=== PATIENT | male | born 1955 | race Caucasian/White ===

== ENCOUNTER 2019-01-01 11:01 | Emergency (ER) | payer SELFPAY ==
[2019-01-01 12:21] LABS: #Basophils 0.1 thou/uL (0.0-0.2); #Eosinphils 0.2 thou/uL (0.0-0.7); #Lymphocytes 3.9 thou/uL (1.20-3.40); #Monocytes 0.9 thou/uL (0.11-0.59); #Neutrophils 7.1 thou/uL (1.40-6.50); %Basophils 0.9 % (0.0-1.0); %Eosinophils 1.2 % (0.0-10.0); %Lymphocytes 32.4 % (21.0-51.0); %Monocytes 7.5 % (0.0-10.0); Hemoglobin 16.4 g/dL (14.0-18.0); Mean Corpuscular HGB CONC 32.3 g/dL (32.0-36.0); Mean Corpuscular Hemoglobin 29.1 pg (27.0-31.0); Mean Corpuscular Volume 90.1 fL (78.0-98.0); Mean Platelet Volume 7.7 fL (7.4-10.4); Platelet Count 271 thou/uL (130-400); RBC Distribution Width 12.8 % (11.5-14.5); Red Blood Cell (RBC) Count 5.62 mill/uL (4.70-6.10); White Blood Cell (WBC) Count 12.2 thou/uL (4.8-10.8)
[2019-01-01 12:46] LABS: ALT (SGPT) 58 U/L (8-55); AST (SGOT) 53 U/L (5-34); Albumin 4.1 g/dL (3.4-4.8); Alkaline Phosphatase 75 U/L (40-150); Anion Gap 13 mmol/L (10-20); BUN (Urea Nitrogen) 14 mg/dL (8.4-25.7); Bilirubin, Total 0.5 mg/dL (0.2-1.2); Calc. Creatinine Clearance 0 mL/min (70-130); Calcium 9.9 mg/dL (7.8-10.44); Carbon Dioxide 26 mmol/L (23-31); Chloride 102 mmol/L (98-107); Estimated GFR-MDRD Greater than 90; Globulin 4.5 g/dL (2.4-3.5); Glucose 123 mg/dL (80-115); Potassium 3.9 mmol/L (3.5-5.1); Protein, Total 8.6 g/dL (5.8-8.1); Sodium 137 mmol/L (136-145)
[2019-01-01] MEDS ORDERED: Ondansetron PF 4 MG/2 ML Vial ONE (13:28)
[2019-01-01] MEDS ORDERED: Morphine 4 MG/ML VIAL ONE (13:29)
[2019-01-01] MEDS ORDERED: ISOVUE-370 76%-LOCM 1 ML ONE (13:35)
--- NOTE | 2019-01-01 14:02 | CT ---
CT Chest W Con: 01/01/2019 1:01 PM CLINICAL INDICATION: Soft tissue mass of the chest. COMPARISON: None.. FINDINGS: Lung and Large Airways: There is mild right basilar atelectasis. Pleura: No effusion or mass. Vessels: There are mild vascular calcifications of the coronary artery and thoracic aorta. Heart: Normal appearing. No pericardial effusion.. Mediastinum and Elena: Normal. Chest Wall and Lower Neck: There is a 6.9 x 5.2 cm heterogeneously enhancing mass extending off the a nterior left chest wall on image 17 of series 5. There is an additional well-circumscribed hypodense mass involving the left posterior lateral back measuring 7 cm. Upper Abdomen: No acute abnormality. Bones: No acute osseous abnormality. There is scattered degenerative and osteoarthritic change presen t. IMPRESSION: 1. Enlarged chest wall soft tissue masses. Surgical consultation is recommended for removal or biopsy . 2. Mild region of subsegmental volume loss within the posterior right lower lobe.
--- NOTE | 2019-01-01 14:15 | CT ---
CT MAXILLOFACIAL WITH CONTRAST: 01/01/19 HISTORY: 63-year-old male with foul smelling draining wound in face. Known basal cell carcinoma. COMPARISON: None. FINDINGS: There is a region of soft tissue nodular thickening involving the skin of the right cheek anterior to the right maxillary sinus. The inferomedial aspect of the soft tissue density has a shallow superfic ial defect which may represent the wound mentioned in the history. This is contiguous with subcutaneo us soft tissue thickening material that extends inferior to the right naris, and abuts the anterior c ortical surface of the right maxilla. No definite osseous cortical destruction or invasion. Poor dent ition. No air fluid levels in the paranasal sinuses. There are small scattered mucous retention cysts in the paranasal sinuses, including sphenoid sinus and bilateral maxillary sinuses, and right fronta l sinus. Partial opacification of bilateral anterior ethmoid air cells. Bilateral tympanomastoid cavi ties are grossly clear. No evidence of mass or abscess in the deep spaces. IMPRESSION: Infiltrative mass consistent with the stated history of skin cancer in the right cheek, with associat ed ulceration, and extending deeper into the superficial soft tissues, abutting the periosteum of the right maxilla. POS: CET
== END 2019-01-01 17:03 | disposition home or self-care (01) ==
LOC: ERS 11:01
DX: L98.9 Disorder of the skin and subcutaneous tissue, unspecified (principal); R22.2 Localized swelling, mass and lump, trunk; F17.210 Nicotine dependence, cigarettes, uncomplicated
CPT/HCPCS: 36415; 70487; 71260; 80053; 83605; 85025; 96361; 96374; 96375; J2270; J2405; Q9966

== ENCOUNTER 2021-02-11 09:57 | Emergency (ER) | payer MEDICARE, SELFPAY ==
[2021-02-11] MEDS ORDERED: traMADol HCl 50 MG TAB ONE (12:25)
== END 2021-02-11 12:30 | disposition home or self-care (01) ==
LOC: ERS 09:57
DX: C44.519 Basal cell carcinoma of skin of other part of trunk (principal); C44.319 Basal cell carcinoma of skin of other parts of face; L72.3 Sebaceous cyst; F17.290 Nicotine dependence, other tobacco product, uncomplicated
CPT/HCPCS: 99282

== ENCOUNTER 2021-03-02 10:29 | Outpatient (CLI) | payer MEDICARE ==
[2021-03-02 12:49] LABS: #Basophils 0.1 10x3/uL (0.0-0.2); #Eosinphils 0.1 10x3/uL (0.0-0.5); #Monocytes 0.8 10x3/uL (0.0-1.1); #Neutrophils 6.7 10x3/uL (1.5-8.4); %Basophils 0.5 % (0.0-2.0); %Eosinophils 1.3 % (0.0-6.0); %Lymphocytes 30.7 % (18.0-47.0); %Monocytes 7.5 % (0.0-10.0); %Neutrophils 59.7 % (40.0-75.0); Mean Corpuscular HGB CONC 32.6 g/dL (32.0-36.0); Mean Corpuscular Hemoglobin 27.5 pg (27.0-33.0); Mean Corpuscular Volume 84.2 fl (81.2-95.1); Mean Platelet Volume 10.2 fl (7.4-10.4); Platelet Count 329 10x3/uL (150-450); RBC Distribution Width 14.6 % (11.5-14.5); Red Blood Cell (RBC) Count 5.46 10x6/uL (4.32-5.72); White Blood Cell (WBC) Count 11.2 10x3/uL (3.5-10.5)
[2021-03-02 13:35] LABS: ALT (SGPT) 53 U/L (8-55); AST (SGOT) 62 U/L (5-34); Albumin 3.8 g/dL (3.4-4.8); Alkaline Phosphatase 92 U/L (40-110); Anion Gap 12 mmol/L (10-20); BUN (Urea Nitrogen) 13 mg/dL (8.4-25.7); Bilirubin, Total 0.3 mg/dL (0.2-1.2); Calc. Creatinine Clearance 0 mL/min (70-130); Calcium 9.8 mg/dL (7.8-10.44); Carbon Dioxide 29 mmol/L (23-31); Chloride 98 mmol/L (98-107); Globulin 4.3 g/dL (2.4-3.5); Glucose 67 mg/dL (80-115); Potassium 4.7 mmol/L (3.5-5.1); Protein, Total 8.1 g/dL (5.8-8.1); Sodium 134 mmol/L (136-145)
[2021-03-02 23:09] LABS: SARS-CoV-2 PCR by NAA Not Detected (NotDetected)
== END 2021-03-02 10:30 | disposition home or self-care (01) ==
LOC: LABBT 10:29
PROVIDERS: ATTEND Surgery
DX: Z01.818 Encounter for other preprocedural examination (principal); C44.519 Basal cell carcinoma of skin of other part of trunk; C44.619 Basal cell carcinoma of skin of left upper limb, including shoulder; Z20.822 Contact with and (suspected) exposure to COVID-19
CPT/HCPCS: 80053; 85025; 93005; U0003; U0005; 93010

== ENCOUNTER 2021-03-05 06:39 | Day surgery (SDC) | payer MEDICARE ==
[2021-03-03 11:36] VITALS: BMI 22.4
[2021-03-05] MEDS ORDERED: Fentanyl 100 MCG/2 ML VIAL ONE ×3 (08:45→12:39)
[2021-03-05] MEDS ORDERED: Midazolam HCl 2 mg/2 ml Vial ONE (08:45)
[2021-03-05] MEDS ORDERED: Lidocaine 1% w/Epinephrine 1:100K 20 ML VIAL ONE (08:46)
[2021-03-05] MEDS ORDERED: Bupivacaine 0.25% HCL 30 ML VIAL ONE (08:46)
[2021-03-05] MEDS ORDERED: Glycopyrrolate 0.2 MG/ML 5 ML SYRINGE ONE (09:04)
[2021-03-05] MEDS ORDERED: Rocuronium Bromide 10 MG/ML (10ML VIAL) ONE (09:04)
[2021-03-05] MEDS ORDERED: PHENYLEPHRINE-NS 100 MCG/ML 10 ML SYRINGE ONE (09:04)
[2021-03-05] MEDS ORDERED: PROPOFOL 200 MG/20 ML VIAL ONE (09:04)
[2021-03-05] MEDS ORDERED: Dexamethasone 20 MG/5 ML VIAL ONE (09:04)
[2021-03-05] MEDS ORDERED: Lidocaine 1% PF 5 ML VIAL ONE (09:04)
[2021-03-05] MEDS ORDERED: Ondansetron PF 4 MG/2 ML Vial ONE (09:04)
[2021-03-05] MEDS ORDERED: hydrALAZINE 20 MG/ML VIAL ONE (11:32)
[2021-03-05] MEDS ORDERED: HYDROcodone/Acetaminophen 5/325 mg Tablet ONE (14:18)
== END 2021-03-05 14:25 | disposition home or self-care (01) ==
LOC: SDC 06:39
PROVIDERS: ATTEND Surgery
PROC: 0HB5XZZ Excision of Chest Skin, External Approach (ICD-10-PCS; principal; 2021-03-05)
PROC: 0HB6XZZ Excision of Back Skin, External Approach (ICD-10-PCS; 2021-03-05)
PROC: 0HBCXZZ Excision of Left Upper Arm Skin, External Approach (ICD-10-PCS; 2021-03-05)
DX: C44.519 Basal cell carcinoma of skin of other part of trunk (principal); C44.619 Basal cell carcinoma of skin of left upper limb, including shoulder; F17.210 Nicotine dependence, cigarettes, uncomplicated; Z79.899 Other long term (current) drug therapy
CPT/HCPCS: 88305; J0360; J0690; J1100; J2250; J2405; J2704; J3010; S0020